=== PATIENT | female | born 1995 | race Caucasian/White ===

== ENCOUNTER 2018-03-28 03:35 | Emergency (ER) | payer OTHER ==
[~2018-03-28] VITALS: Ht 170.2 cm; Wt 77.8 kg
--- NOTE | 2018-03-28 03:42 | NUR ---
PT HAS OWN ICE PACK
[2018-03-28] MEDS ORDERED: BUPIVACAINE 0.25% ONE (03:46)
[2018-03-28] MEDS ORDERED: LIDOCAINE-MPF 1%, 5ML ONE (03:47)
--- NOTE | 2018-03-28 03:54 | NUR ---
PROVIDER AT BEDSIDE FOR DIG BLOCK. XRAY AT BEDSIDE. TECH AT BEDSIDE FOR WOUND CLEANING. CALL LIGHT IN REACH. NO NEEDS EXPRESSED.
--- NOTE | 2018-03-28 04:23 | NUR ---
erp at bedside to recheck.
--- NOTE | 2018-03-28 04:51 | NUR ---
PA at bedside for repair.
[2018-03-28] MEDS ORDERED: BACITRACIN ZINC OINT 500U/GM, 0.9 GM ONE (05:12)
[2018-03-28 05:29] VITALS: BP 107/63
== END 2018-03-28 05:32 | disposition home or self-care (01) ==
LOC: ED 05:21
DX: S62.632B Displaced fracture of distal phalanx of right middle finger, initial encounter for open fracture (principal); Z88.6 Allergy status to analgesic agent; X58.XXXA Exposure to other specified factors, initial encounter; Y93.89 Activity, other specified; Y92.009 Unspecified place in unspecified non-institutional (private) residence as the place of occurrence of the external cause; Y99.8 Other external cause status
CPT/HCPCS: 11760; 29130; 99284; 99285